=== PATIENT | female | born 1990 | race Asian ===

== ENCOUNTER 2021-01-13 07:27 | Inpatient (IN) | payer OTHER ==
[~2021-01-13] VITALS: Ht 157.5 cm; Wt 71.5 kg
[2021-01-13] MEDS ORDERED: LABETALOL 5MG/ML, 20ML IVPush PRN (10:30)
[2021-01-13] MEDS ORDERED: BUTALB/APAP/CAFFEINE 50MG/325MG/40MG PO PRN (10:30)
[2021-01-13] MEDS ORDERED: ONDANSETRON 2MG/ML, 2ML IVPush PRN (10:30)
[2021-01-13] MEDS ORDERED: GUAIFENESIN/DM 200-20MG, 10ML UDC PO PRN (10:30)
[2021-01-13] MEDS ORDERED: ACETAMINOPHEN 325 MG TABLET PO PRN (10:30)
[2021-01-13] MEDS ORDERED: ONDANSETRON ODT 4 MG PO PRN (10:30)
[2021-01-13] MEDS ORDERED: BACLOFEN 10 MG TABLET PO PRN (10:30)
[2021-01-13] MEDS ORDERED: D5%-0.45NACL+KCL 20MEQ 1,000 ML IV SCH (10:30)
[2021-01-13] MEDS ORDERED: OXYcodone IR 5MG TABLET PO PRN (10:30)
[2021-01-13] MEDS ORDERED: ENALAPRILAT 1.25 MG/ML, 2ML IVPush PRN (10:30)
[2021-01-13] MEDS ORDERED: PLEASE ENTER HEIGHT AND WEIGHT MC SCH (11:00)
[2021-01-13] MEDS ORDERED: PLEASE ENTER ALLERGIES MC SCH (11:00)
[2021-01-13 11:44] LABS: FREE T4 (FREE THYROXINE) 1.01 ng/dL (0.76-1.46)
[2021-01-13 11:49] VITALS: BP 134/95
[2021-01-13 13:34] VITALS: BP 146/98
[2021-01-13] MEDS ORDERED: ESCI10TA97 PO (14:33)
[2021-01-13] MEDS ORDERED: LEVO1TAB29 PO (14:33)
[2021-01-13] MEDS: ENOXAPARIN 60 MG/0.6 ML SQ SCH (17:38)
[2021-01-13 19:59] VITALS: BP 136/92
[2021-01-13] MEDS ORDERED: ATORVASTATIN 40 MG TABLET PO SCH (21:00)
[2021-01-13] MEDS ORDERED: MELATONIN 5 MG TABLET PO SCH (21:00)
[2021-01-13] MEDS ORDERED: LUTERA HOMEMEDPO SCH (22:16)
[2021-01-14 01:22] VITALS: BP 129/88
[2021-01-14 04:45] LABS: MEAN CORPUSCULAR HEMOGLOBIN 30.4 pg (27.0-34.8); MEAN CORPUSCULAR HGB CONC 34.1 g/dL (32.4-35.8); MEAN PLATELET VOLUME 9.9 fL (7.4-10.4); PLATELET COUNT 225 x10^3/uL (130-400); RED BLOOD COUNT 4.18 x10^6/uL (3.82-5.3)
[2021-01-14 04:51] LABS: INTERNATIONAL NORMALIZED RATIO 1.01 (0.93-1.1); PROTHROMBIN TIME 10.8 Seconds (9.6-11.5)
[2021-01-14 04:55] LABS: ALBUMIN 3.2 g/dL (3.4-5.0); ANION GAP 6 mmol/L (5-15); CALCIUM 7.8 mg/dL (8.5-10.1); CHLORIDE 111 mmol/L (98-107)
[2021-01-14 05:02] LABS: ALANINE AMINOTRANSFERASE 16 U/L (12-78); ALKALINE PHOSPHATASE 33 U/L (45-117); BILIRUBIN,TOTAL 0.3 mg/dL (0.2-1.0); TOTAL PROTEIN 6.7 g/dL (6.4-8.2)
[2021-01-14 05:41] LABS: MD YES
[2021-01-14 05:43] LABS: <PLATELET ESTIMATE> ADEQUATE; <PLT MORPHOLOGY> NORMAL PLT MORPH; <RBC MORPHOLOGY> NORMAL; BAND#(MANUAL) 0.06 x10^3/uL; BANDS%(MANUAL) 1 % (0-7); EOS#(MANUAL) 0.12 x10^3/uL (0.0-0.4); EOS% (MANUAL) 2 % (1-7); LYMPH#(MANUAL) 3.48 x10^3/uL (1-3.4); LYMPHS% (MANUAL) 58 % (22-44); MONOS#(MANUAL) 0.18 x10^3/uL (0.3-2.7); MONOS% (MANUAL) 3 % (2-9); SEG#(MANUAL) 2.16 x10^3/uL (1.8-6.8); SEGS% (MANUAL) 36 % (42-75)
[2021-01-14] MEDS ORDERED: ASPIRIN 81 MG TABLET EC PO SCH (06:00)
[2021-01-14] MEDS: ENOXAPARIN 60 MG/0.6 ML SQ SCH (06:03)
[2021-01-14 07:43] VITALS: BP 110/73
[2021-01-14] MEDS ORDERED: ESCITALOPRAM 10MG TABLET PO SCH (09:00)
[2021-01-14] MEDS ORDERED: ESTRADIOL 0.05 MG/24 HR PATCH TD SCH (09:00)
[2021-01-14 09:32] LABS: TROPONIN I 0.867 ng/mL (0.000-0.045)
[2021-01-14] MEDS ORDERED: FENTANYL PF 100 MCG/2ML ONE (12:34)
[2021-01-14] MEDS ORDERED: MIDAZOLAM 1 MG/ML, 5ML ONE (12:34)
[2021-01-14] MEDS ORDERED: VERAPAMIL 2.5 MG/ML, 2ML ONE (12:34)
[2021-01-14] MEDS ORDERED: TICAGRELOR 90 MG TABLET ONE (12:34)
[2021-01-14 12:35] VITALS: BP 135/86
[2021-01-14] MEDS ORDERED: HEPARIN 1,000 UNITS/ML, 10ML ONE (12:35)
[2021-01-14] MEDS ORDERED: LIDOCAINE-MPF 1%, 5ML ONE (12:35)
[2021-01-14] MEDS ORDERED: BIVALIRUDIN 250 MG ONE (12:35)
[2021-01-14] MEDS ORDERED: SODIUM CHLORIDE 0.9% 1,000 ML IV SCH (14:00)
[2021-01-14] MEDS ORDERED: METOPROLOL SUCCINATE 25 MG TAB.ER.24H PO SCH (14:30)
[2021-01-14] MEDS ORDERED: CLOPIDOGREL 75 MG TABLET PO SCH (14:30)
[2021-01-14] MEDS ORDERED: CLOP75TA PO (16:38)
[2021-01-14] MEDS ORDERED: ASPI81TA45 PO (16:38)
[2021-01-14] MEDS ORDERED: ATOR40TA78 PO (16:38)
[2021-01-14] MEDS ORDERED: METO25TA91 PO (16:38)
== END 2021-01-14 17:45 | disposition home or self-care (01) | DRG 287 ==
LOC: INTOOBSV 10:03 → 5SO 10:03 → OBSVTOIN 10:03
PROVIDERS: ADMIT Family Medicine; ATTEND Family Medicine
PROC: 4A023N8 Measurement of Cardiac Sampling and Pressure, Bilateral, Percutaneous Approach (ICD-10-PCS; principal; 2021-01-14)
PROC: B2111ZZ Fluoroscopy of Multiple Coronary Arteries using Low Osmolar Contrast (ICD-10-PCS; 2021-01-14)
PROC: B2151ZZ Fluoroscopy of Left Heart using Low Osmolar Contrast (ICD-10-PCS; 2021-01-14)
DX: R07.89 Other chest pain (principal); R79.89 Other specified abnormal findings of blood chemistry; R94.31 Abnormal electrocardiogram [ECG] [EKG]; F41.1 Generalized anxiety disorder; F12.90 Cannabis use, unspecified, uncomplicated; Z88.6 Allergy status to analgesic agent; Z79.899 Other long term (current) drug therapy
CPT/HCPCS: 36415; 80053; 83735; 84439; 84443; 84484; 84703; 85025; 85610; 93005; 93306; 93356; 93460; 96360; 96361; 96372; 99156; C1769; C1894; G0378; J0583; J1644; J1650; J2250; J3010; J3480; Q9967